=== PATIENT | female | born 1960 | race Caucasian/White ===

== ENCOUNTER 2018-05-09 05:25 | Inpatient (IN) ==
[2018-05-09] MEDS ORDERED: ceFAZolin Inj 2gm (Premix) 2 GM/50 ML BAG IV ONE ×2 (05:42→06:00)
[2018-05-09] MEDS ORDERED: Vancomycin Inj 1gm vial ONE ×3 (05:42→16:59)
[2018-05-09] MEDS ORDERED: Lactated Ringers 1,000 ML PRIMARY IV ONE ×4 (05:43→15:32)
[2018-05-09] MEDS ORDERED: LIDOCAINE W/ SODIUM BICARB 0.5 ML SYR ONE (05:43)
[2018-05-09] MEDS ORDERED: Sodium Chloride 0.9% 250 ML ONE (05:43)
[2018-05-09] MEDS ORDERED: Nasal Sanitizer POPSWAB ampule 3 AMP (Nozin) PREOP DOSE ENOS SCH (06:00)
[2018-05-09] MEDS ORDERED: LIDOCAINE W/ SODIUM BICARB 0.5 ML SYR SUBD ONE (06:00)
[2018-05-09] MEDS ORDERED: Propofol 2,000 MG/200 ML VIAL IV ONE (06:58)
[2018-05-09] MEDS ORDERED: REMIFENTANIL 1 MG/1 ML IV ONE ×2 (07:00→14:50)
[2018-05-09] MEDS ORDERED: REMIFENTANIL HCL 2 MG VIAL IV ONE ×2 (07:00→14:51)
[2018-05-09] MEDS ORDERED: VECURONIUM BROMIDE 10 MG VIAL ONE (07:06)
[2018-05-09] MEDS ORDERED: fentaNYL Inj 250 MCG/5 ML VIAL ONE (07:07)
[2018-05-09] MEDS ORDERED: IPRATROPIUM/ALBUTEROL SULFATE 3 ML NEB NEB PRN (07:10)
[2018-05-09] MEDS ORDERED: MIDAZOLAM 5 MG/1 ML ONE (07:10)
[2018-05-09] MEDS ORDERED: KETAMINE 100 MG/1 ML - 5 ML ONE (07:10)
[2018-05-09] MEDS ORDERED: fentaNYL Inj 100 MCG/2 ML VIAL IVP PRN ×2 (07:11→20:03)
[2018-05-09] MEDS ORDERED: ATROPINE SULFATE 0.4 MG/1 ML VIAL IVP PRN (07:11)
[2018-05-09] MEDS ORDERED: Prochlorperazine Edisylate Inj 10mg/2ml vial IVP PRN ×2 (07:11→21:12)
[2018-05-09] MEDS ORDERED: Ondansetron ODT Tab 8 MG TAB PO PRN (07:11)
[2018-05-09] MEDS ORDERED: ONDANSETRON 4 MG/2 ML VIAL IVP PRN ×2 (07:11→21:12)
[2018-05-09] MEDS ORDERED: LIDOCAINE W/ SODIUM BICARB 0.5 ML SYR SUBD PRN ×2 (07:11→20:03)
[2018-05-09] MEDS ORDERED: Acetaminophen 1000mg Inj 1,000 MG/100 ML VIAL IV ONE (07:18)
[2018-05-09] MEDS ORDERED: Sodium Chloride 0.9% 500 ML ONE (07:25)
[2018-05-09] MEDS ORDERED: Sodium Chloride 0.9% vial 40 ML ONE (07:31)
[2018-05-09] MEDS ORDERED: BUPIVACAINE 0.25% W/ EPI - 10 ML VIAL ONE (07:32)
[2018-05-09] MEDS ORDERED: BACITRACIN 50,000 UNIT VIAL IRRIG ONE ×2 (07:32→17:00)
[2018-05-09] MEDS ORDERED: Gentamicin Inj 40 MG/ML VIAL ONE ×2 (07:32→16:59)
[2018-05-09] MEDS ORDERED: PHENYLEPHRINE 10,000 MCG/1 ML VIAL ONE (08:35)
[2018-05-09] MEDS ORDERED: ePHEDrine Inj 50 MG/ML AMP ONE ×3 (08:55→17:26)
[2018-05-09] MEDS ORDERED: Hetastarch 6% + NS 500 ML IV ONE ×2 (10:27→17:12)
[2018-05-09] MEDS ORDERED: DOPAMINE IV ONE (11:28)
[2018-05-09] MEDS ORDERED: Propofol 1,000 MG/100 ML VIAL IV ONE ×2 (12:57→15:22)
[2018-05-09] MEDS ORDERED: Sodium Chloride 0.9% vial 20 ML ONE (16:59)
[2018-05-09] MEDS ORDERED: Sodium Chloride 0.9% vial 10 ML ONE ×2 (17:06→17:15)
[2018-05-09] MEDS ORDERED: PROPOFOL 10 MG/1 ML (200 MG/20 ML) VIAL IV ONE (18:03)
[2018-05-09] MEDS ORDERED: HYDROmorphone 2 MG/1 ML ONE (18:30)
[2018-05-09] MEDS ORDERED: BUPivacaine Inj 0.5% PF (5mg/ml) 10ml vial ONE (18:32)
[2018-05-09] MEDS ORDERED: BUPivacaine Liposome/PF (Exparel) Inj 20ml vial INFIL ONE (18:32)
[2018-05-09] MEDS ORDERED: HYDROmorphone 2 MG/1 ML IVP PRN (20:03)
[2018-05-09] MEDS ORDERED: PROMETHAZINE 25 MG/1 ML VIAL IM PRN ×2 (20:03→21:12)
--- NOTE | 2018-05-09 20:05 | CRNA.PROGR ---
Anesthesia Time - Procedure/Recovery Time Start Date: 05/09/18 End Date: 05/09/18 Anesthesia : Time In: 07:56 Anesthesia : Time Out: 19:57 Anesthesia : Total Time: 721 - Total Anesthesia Time Total Anesthesia Time (minutes): 721 - Other Weight: 70.76 kg Height: 5 ft 5 in Body Mass Index (BMI): 25.9 Physical Status: P2 Anesthesia Type: General Anesthesia : ET (L3-s1 PLIF)
--- NOTE | 2018-05-09 20:06 | CRNA.PROGR ---
Anesthesia Recovery Phase I - Post Anesthesia Evaluation Patient's Condition on Arrival in Phase I: Stable Pain Level: 2
[2018-05-09] MEDS: HYDROmorphone 2 MG/1 ML IVP PRN ×2 (20:17→20:30)
--- NOTE | 2018-05-09 20:27 | NEURO.PROG ---
Subjective Post Op Day: 0 Pain Management: IV Escalante Catheter: Yes Diet: Regular Ambulating: No Additional Details: Just waking up in PACU. Groggy, but answering questions and following commands. Complaint of chest pain, where supported by chest pad. Some redness, but blanches. Moving all extremities. PLAN: 1.) Transfer to floor when ready. 2.) Continue post-operative antibiotics. 3.) Continue post-operative pain control. 4.) Continue drains. 5.) Advance diet. 6.) Start to mobilize tomorrow. Objective : Data - Vital Signs Vital Signs and I&O: Vital Signs - Last Taken Temperature 97.6 F 05/09/18 06:30 Pulse Rate 69 05/09/18 07:20 Respiratory Rate 18 05/09/18 07:20 Blood Pressure 120/71 05/09/18 06:30 Pulse Ox 100 05/09/18 07:20 Intake and Output (24hr x 4 totals) 05/07/18 05/08/18 05/09/18 05/10/18 05:59 05:59 05:59 05:59 Intake Total 5800 / 5800 Output Total 2900 / 2900 Balance 2900 / 2900
[2018-05-09] MEDS ORDERED: MAGNESIUM CITRATE 296 ML SOLUTION PO PRN (21:12)
[2018-05-09] MEDS ORDERED: Metoclopramide Inj 10 MG/2 ML VIAL IVP PRN (21:12)
[2018-05-09] MEDS ORDERED: DIAZEPAM 10 MG TABLET PO PRN (21:12)
[2018-05-09] MEDS ORDERED: BISACODYL 5 MG TABLET PO PRN (21:12)
[2018-05-09] MEDS ORDERED: Fleet Enema 133ml RECTAL PRN (21:12)
[2018-05-09] MEDS ORDERED: Ondansetron ODT Tab 4 MG TAB PO PRN (21:12)
[2018-05-09] MEDS ORDERED: oxyCODONE/APAP 7.5/325 Tab 1 TAB TAB PO PRN (21:12)
[2018-05-09] MEDS ORDERED: Vancomycin-PHA to Dose IV SCH (21:12)
[2018-05-09] MEDS ORDERED: oxyCODONE-ACETAMINOPHEN 5-325 TAB PO PRN (21:12)
[2018-05-09] MEDS ORDERED: MAGNESIUM 400 MG/5 ML - 30 ML (MILK OF MAGNESIA) PO PRN (21:12)
[2018-05-09] MEDS: Sertraline Tab 50 MG TAB PO SCH (21:44)
[2018-05-09] MEDS: ALPRAZolam Tab 1 MG TABLET PO SCH (21:45)
[2018-05-09] MEDS: CALCIUM LACTATE PO SCH (22:56)
[2018-05-09] MEDS: Lactated Ringers 1,000 ML PRIMARY IV SCH (23:02)
[2018-05-10] MEDS: ceFAZolin Inj 1 GM in Sodium Chloride 0.9% 100 ML IV SCH ×2 (00:05→06:12)
[2018-05-10] MEDS: MORPHINE SULFATE 2 MG/1 ML IVP PRN ×2 (00:05→04:16)
[2018-05-10] MEDS: oxyCODONE/APAP 10/325 Tab 1 EACH TAB PO PRN ×7 (01:35→20:52)
[2018-05-10 05:04] LABS: BASOPHILS # (AUTO) 0.01 10*3/UL; BASOPHILS % (AUTO) 0.1 % (0-1); EOSINOPHILS # (AUTO) 0.03 10*3/UL; EOSINOPHILS % (AUTO) 0.4 % (0-8); Hematocrit [HCT] 25.5 % (37.0-47.0); LYMPHOCYTES # (AUTO) 0.65 10*3/uL; MEAN CORPUSCULAR HEMOGLOBIN 31.1 PG (27-31); MEAN CORPUSCULAR HGB CONC 31.4 g/dL (33-37); MEAN CORPUSCULAR VOLUME 99.2 FL (81-99); MEAN PLATELET VOLUME 8.6 FL (7.4-12.2); MONOCYTES # (AUTO) 0.43 10*3/UL (0.3-0.8); MONOCYTES % (AUTO) 5.9 % (5-15); NEUTROPHILS # (AUTO) 6.13 10*3/UL; NEUTROPHILS % (AUTO) 84.4 % (50-80); RED BLOOD COUNT 2.57 10^6/uL (4.20-5.40)
[2018-05-10 05:28] LABS: PLATELET MORPHOLOGY COMMENT NORMAL MORPHOLOGY (NORM); RBC MORPHOLOGY COMMENT SEE COMMENTS (NORM); WBC MORPHOLOGY COMMENT NORMAL MORPHOLOGY (NORM)
[2018-05-10 05:29] LABS: BLOOD UREA NITROGEN 9 mg/dL (7-22)
--- NOTE | 2018-05-10 05:34 | NEURO.PROG ---
Subjective Post Op Day: 1 Pain Management: IV Mcgill Catheter: Yes Flatus: Yes Diet: Regular Ambulating: No Additional Details: Ms Hernandez is awake and alert and moves all extremities. She has good strength bilaterally without numbness or paresthesias. Her pain is localized to the surgical area. She has not been out of bed but is ready to do so after pain meds this morning. Her chest is still sore from the pressure of the chest support during surgery, but has improved. Drainage from both drains is sero-sanguineous totalling approx 800 since surgery. She has a mcgill catheter which will be dc'd after she's been up. She was fitted for a back brace preoperatively and physical therapy will be here to assist with it and with ambulation. Dr Jones rounded this morning and discussed the plan going forward. He spoke with Ms Hernandez regarding the potential need for blood transfusion if she becomes symptomatic or if the hospitalist feels she needs one. Plan today is for pain management and progressive mobilization with physical therapy. Objective : Data - Labs CBC and BMP: 05/10/18 04:04 05/10/18 04:04 - Vital Signs Vital Signs and I&O: Vital Signs - Last Taken Temperature 98.4 F 05/10/18 04:04 Pulse Rate 97 05/10/18 04:04 Respiratory Rate 20 05/10/18 04:04 Blood Pressure 95/65 05/10/18 04:04 Pulse Ox 99 05/10/18 04:52 Intake and Output (24hr x 4 totals) 05/07/18 05/08/18 05/09/18 05/10/18 05:59 05:59 05:59 05:59 Intake Total 7075 / 7075 Output Total 4382 / 4382 Balance 2693 / 2693
[2018-05-10] MEDS: Lactated Ringers 1,000 ML PRIMARY IV SCH ×2 (06:15→14:29)
[2018-05-10] MEDS: HYDROmorphone 2 MG/1 ML IVP PRN ×6 (06:43→23:33)
[2018-05-10] MEDS: PANTOPRAZOLE 40 MG TABLET PO SCH (07:22)
[2018-05-10] MEDS: ALPRAZolam Tab 1 MG TABLET PO SCH ×2 (08:52→20:53)
[2018-05-10] MEDS: ASCORBIC ACID Chewable 500 MG TABLET PO SCH (08:52)
[2018-05-10] MEDS: CHOLECALCIFEROL 1000 IU TABLET PO SCH (08:56)
[2018-05-10] MEDS: CALCIUM LACTATE PO SCH (09:11)
--- NOTE | 2018-05-10 09:13 | PT.PROG ---
Progress Note Progress Note: Inpatient Initial Evaluation Name: Terese Hernandez Date: 05/10/18 Referring Diagnosis: lumbar fusion Date of Surgery/Admission: 05/09/18 Diagnosis: see above Thank you for your referral of PT. She was seen on 05/10/18 for the above diagnosis. Subjective: Patient is a 57 year old female s/p lumbar fusion. She states her level of pain is a 6/10, though it was a 15/10 prior to her pain medication. She states she is going to live with her brother and his following discharge so she is not alone. Her brother's residence has 2 steps leading into the house, but other than that there are no stairs she will need to utilize. Patient is receiving medications for pain at this time. Past Medical History: Past medical history can be found in the patient's chart. Objective: The patient transferred from sidelying to a seated position with minimal assistance and minimal pain. She was able to walk from her bed to her chair with MIAx2. She demonstrated full UE ROM, but resistance was not given at this time due to recent surgery. Assessment: Problem List: 1. Weakness 2. Pain 3. Difficulty walking 4. Difficulty transferring Short term goals: 1. Patient will be able to ambulate 150 ft independently in order to walk at home safely prior to discharge from inpatient care. 2. Patient will be able to transfer independently in order to get out of bed safely and independently at home prior to discharge. [facility] goals: 1. Patient will be seen by outpatient physical therapy. Treatment Plan: Patient will be seen twice a day during the week and once over the weekend as an inpatient until discharge. Initial Treatment: See objective Respectfully submitted, Mary Charlton, SPT [facility], [facility]
[2018-05-10] MEDS: CARISOPRODOL 350 MG TABLET PO PRN (13:27)
[2018-05-10] MEDS: NICOTINE 21 MG /DAY PATCH TRANSDERM SCH (14:47)
--- NOTE | 2018-05-10 15:13 | PT.PROG ---
Progress Note Progress Note: S. Patient stated that she is feeling a little better this afternoon, compared to this morning. O. Patient transferred from side lying to seated then ambulated 15 feet to the rosario and 10 feet back to the chair where she was left with alarm and call light. A. Patient tolerated ambulation well this afternoon. She would continue to benefit from skilled therapy to meet established goals at this time. P. Continue POC.
--- NOTE | 2018-05-10 17:06 | CRNA.PROGR ---
Anesthesia Note - Progress Notes Anesthesia Progress Note: Lying in bed, asking for pain medicine. Says she has ambulated a couple times. Has been up to bathroom. States she ate breakfast. Chest is sore where she has a pressure sore r/t long time in prone position. Laboratory Results 05/10/18 05/10/18 Range/Units 04:04 04:04 WBC 7.27 (4.8-10.8) 10^3/uL RBC 2.57 L (4.20-5.40) 10^6/uL Hgb 8.0 L (12.0-16.0) g/dL Hct 25.5 L (37.0-47.0) % MCV 99.2 H (81-99) FL MCH 31.1 H (27-31) PG MCHC 31.4 L (33-37) g/dL RDW Std Deviation 46.8 (39-50) fL RDW Coeff of Kevin 13.3 (11.5-14.5) % Plt Count 207 (140-350) 10*3/uL MPV 8.6 (7.4-12.2) FL Immature Gran % (Auto) 0.3 (0-5) % Neut % (Auto) 84.4 H (50-80) % Lymph % (Auto) 8.9 L (10-50) % [place] % (Auto) 5.9 (5-15) % Eos % (Auto) 0.4 (0-8) % Baso % (Auto) 0.1 (0-1) % Immature Gran # (Auto) 0.02 10*3/UL Neut # (Auto) 6.13 10*3/UL Lymph # (Auto) 0.65 10*3/uL [place] # (Auto) 0.43 (0.3-0.8) 10*3/UL Eos # (Auto) 0.03 10*3/UL Baso # (Auto) 0.01 10*3/UL WBC Morphology Comment Normal morphology (NORM) Plt Morphology Comment Normal morphology (NORM) RBC Morph Comment See comments (NORM) Sodium 141 (135-145) meq/L Potassium 4.0 (3.8-5.2) meq/L Chloride 111 (98-112) meq/L Carbon Dioxide 28 (23-33) meq/L Anion Gap 2 L (5-20) BUN 9 (7-22) mg/dL Creatinine 0.5 (0.50-1.20) mg/dL Estimated GFR > 60 (>60 ml/min/1.73m(2)) BUN/Creatinine Ratio 18.00 (6-20) Glucose 111 H (78-110) mg/dL Calculated Osmolality 291.0 (267-292) mOsm/kg Calcium 7.7 L (8.7-10.7) mg/dL
--- NOTE | 2018-05-10 17:49 | GEN.OPNOTE ---
Operative Note Surgery Date: 05/09/18 Preoperative Diagnosis: 1.) Chronic severe low back pain. 2.) Multilevel advanced lumbar degenerative disc disease. 3.) Multilevel advanced lumbar spondylosis. 4.) Severe left L4 neuroforaminal stenosis. 5.) Severe left L5 neuroforaminal stenosis. Postoperative Diagnosis: Same. Procedure: 1.) Left L4-5 hemilaminotomy, medial facetectomy, foraminotomy for decompression of lateral recess and severe neuroforaminal stenosis. (CPT code: 36277). 2.) Left L5-S1 hemilaminotomy, medial facetectomy, foraminotomy for decompression of lateral recess and severe neuroforaminal stenosis. (CPT code: 58102). 3.)L5-S1 interbody and posterolateral arthrodesis in preparation for fusion of the anterior and posterior aspects of the spinal column at the L5-S1 level. (CPT code: 86728). 4.) Insertion of a 9mm x 11mm x 26 mm Tritanium PL machined cage (filled in the center with autograft into the L5-S1 interspace. ( CPT code: 93364). 5.) Posterolateral arthrodesis, T10, bilaterally in preparation for posterolateral fusion. (CPT code: 47804). 6.) Posterolateral arthrodesis, T11, bilaterally in preparation for posterolateral fusion. (CPT code: 17002). 7.) Posterolateral arthrodesis, T12 bilaterally in preparation for posterolateral fusion. (CPT code: 92261). 8.) Posterolateral arthrodesis, L1 bilaterally in preparation for posterolateral fusion. (CPT code: 69021). 9. ) Posterolateral arthrodesis, L2 bilaterally in preparation for posterolateral fusion. (CPT code: 91167). 10.) Posterolateral arthrodesis, L3 bilaterally in preparation for posterolateral fusion. (CPT code: 57037). 11.) Posterolateral arthrodesis, L4 bilaterally in preparation for posterolateral fusion. (CPT code : 66353). 12.) Posterolateral arthrodesis, S1 bilaterally in preparation for posterolateral fusion. (CPT code: 72780). 13.) Posterolateral segmental instrumentation T10-S1 (sacrum) using [employer] 3 lumbar instrumentation system. (CPT code: 02068). 14.) Posterolateral pelvic fixation of lower end of instrumentation construct using iliac bolts ([place] Regis 3 system). (CPT code : 48786). 15.) Use of morselized autograft for interbody and posterolateral fusion. (CPT code: 84033). 16.) Use of two medium Telkonettronic INFUSE bone morphogenic protein strips, 30 cc of [employer] BIO DBM PUTTY PLUS with cancellous chips, 5 cc of [employer] i-FACTOR synthetic bone product, and 120 cc of cancellous bone chips (morsellized allograft) for fusion material (some interbody and all posterolateral). (CPT code: 55418). 17.) Use of computer assisted, three dimensional neuronavigation for the cannulization of the T10-S1 pedicles and the ilium bilaterally using the [employer] Neuronavigation system for the subsequent placement of the T10-S1 pedicle screws and iliac bolts bilaterally. 18.) Use of intra-operative neuronavigation for the localization of the correct surgical levels and for the final confirmation of the position of the L5 -S1 interbody cage. 19.) Use of intra-operative neuromonitoring including free running EMG's, triggered EMG's, SSEP's, and MEP's. Surgeon: Mehdi Jones MD Volunteer Manager: ABBIE Rojas Anesthesia Provider: Jordyn Dale CRNA Anesthesia Type: General Estimated Blood Loss (mL): 1,000 Fluids: See anesthesia record Pathology: None Indications: Ms. Hernandez is a 57 y.o. female with chronic severe low back pain that she consistently rates as 10/10 and effects the things that she is able to do and affects her quality of life. She had imaging studies demonstrating multilevel advanced lumbar degenerative disc disease and multilevel lumbar spondylosis. Her symptoms failed to improve with expectant management, medical management, and all other non-operative treatments. She wished to proceed with surgical treatment in the hope of some degree of durable lessening of her severe chronic low back pain. Findings: 1.) Left L4-5 and L5-S1 lateral recess stenosis. 2.) Severe left L4 and L5 neuroforaminal stenosis. 3.) Multilevel advanced facet arthropathy/hypertrophy. Complications: None Operative Summary: Miss Hernandez was met in the preoperative area. Her surgical history and physical was updated. The procedure to be performed was confirmed with her and her and we were in agreement on the procedure and this matched what was written on the patient's consent form. Any questions that she or her had were answered before she was taken back to the operating room suite. Miss Hernandez was brought back to the operating room suite and put under general anesthesia and intubated by the anesthesia staff. She had a Escalante catheter placed or bladder for the procedure. She had pneumatic compression hose placed on her lower legs. Miss Hernandez was carefully rolled over onto the [place] surgical table with her arms gently positioned upwards with her shoulders abducted less than 90. Her arms were well-padded with foam padding on top of the padding of the surgical armboards. The region of her chest and axilla was checked bilaterally to make sure that there were no pressure points over the region of the brachial plexus bilaterally. Her breasts were checked be below the chest pain of the Josesito table with no pressure points over the nipples. All bony prominences were well padded. Her Escalante catheter was checked to be free from kinks. Her pneumatic compression hose was attached pneumatic compression device. The C-arm fluoroscopy unit was used to help localize the skin incision for the approach to the intended surgical levels. The skin was marked with a skin marker was several crosshatches. Miss Hernandez was prepped and draped in the usual and standard fashion. She was given 2 g of Ancef IV and 1 g of vancomycin IV for perioperative antibiosis. The intended skin incision was injected subcutanously with quarter percent Marcaine with 1 in 200,000 epinephrine. The skin was incised with a 10 blade scalpel and all dermal and superficial bleeding points were controlled with bipolar cautery dissection was continued through the subcutaneous tissue down to the thoracolumbar, lumbar, and lumbosacral fascia. Any bleeding in the subcutaneous tissue was controlled with the Aqua Mantis. The subcutaneous tissue was dissected laterally from the fascia to help identify the fascial layer for the closure portion of the procedure. The fascia was incised along the borders of the spinous processes with Bovie cautery and subperiosteal dissection was performed down the spinous processes and out over the lamina. When most of the lumbar lamina was identified to believed to be the sacrum and several of the lower thoracic lamina were dissected out [place] 4 instrument was placed underneath what was believed to be the L5 lamina and a Patrick instrument manidner was placed over the lower thoracic spinous process adjacent to what was believed to be the level of the T10 pedicles. AP and lateral fluoroscopic images identified the levels continued subperiosteal dissection was performed until the exposure was from the T 10 lamina to the sacrum bilaterally. The dissection was then taken taken out laterally over the facet joints and transverse processes of each of these levels bilaterally. Medial aspect of the ilium and the crest was dissected out bilaterally closure needed for the placement of the iliac bolts. Soft tissue was removed over the posterior aspect of the spine using Bovie cautery and a large Leksell rongeur. Extensive decortication of the facet joints and transverse processes was then performed from T10-S1 using the [employer] high-speed drill with a matchstick bit and the upper part of the sacrum and sacral alar and the medial aspect of the ilium was decorticated in the same fashion with the same drill in the same bit. The bone dust created was collected and saved to be used as autograft during the fusion portion of the procedure. The [employer] neuro navigation reference arc was then securely attached to the T10 spinous process. Four spins were then performed with the [facility] 3-D fluoroscopy unit. The [employer] neuro navigation pedicle probe was then used to cannulate the T10, T11, T12, L1, L2, L3, L4, L5, S1 pedicles as well as the ilium bilaterally. Internal aspect of all cannulated channels were palpated with a small ball-tip instrument to make sure that there were no cortical breaches of the pedicles or the ilium. The pedicles and ilium were all then tapped with the appropriate size [place] Regis 3 tap. The pedicles and the ilium were all then palpated again with a small ball-tip instrument to again assure that there were no cortical breaches. Pedicle screws and iliac bolts were then placed. Or 4.5 x 45 mm pedicle screws were placed into the T10 pedicles bilaterally. 5.5 x 50 mm pedicle screws were placed into the T11 and T12 pedicles bilaterally. 4.5 x 45 mm pedicle screws were placed into the L1 pedicles bilaterally. 5.5 x 55 mm pedicle screws were placed into the L2, L3, L4, L5 pedicles bilaterally. 6.5 x 50 mm pedicle screws were placed into the S1 pedicles bilaterally. 7.5 x 80 mm iliac bolts were placed into the ilium bilaterally. All screws obtained good purchase in the pedicle and vertebral body bone in the ilium bilaterally. The thoracic and lumbar pedicle screws as well as the iliac bolts were then all interrogated with triggered EMGs. All demonstrated to be over 40 mA in impedance with the exception of one of the pedicle screws that had a reading of 39 mA. This indicated all pedicle screws in the iliac bolts were not in near proximity to nerve structures. Four additional spins with the [facility] 3-D fluoroscopy unit provided further confirmation that the pedicle screws were all confined within the cortical jimenez of the pedicles and the ilium bilaterally. Attention was turned to the decompression on the left at the L4-5 and L5-S1 levels to decompress the respective nerve foramen at these levels. Lino- laminotomies medial facetectomies and foraminotomies were performed at L4-5 and L5-S1 on the left using the [employer] high-speed drill with a matchstick bit. Surgical findings included not only severe left L4 and left L5 neuroforaminal stenosis but also moderately severe to severe left L4-5 and L5-S1 lateral recess stenosis secondary to bony arthropathy and ligamentous hypertrophy. This was all decompressed with the high-speed drill with a matchstick bit was with Kerrison punches. The medial facetectomy at L5-S1 on the left was extended laterally using the high-speed drill with a matchstick bit to provide the proper exposure needed for the discectomy and interbody fusion portion of the procedure. [place] 4 instrument was used to carefully dissect the soft tissue adjacent to the takeoff of the S1 nerve root identifying the L5-S1 disc space. The Luis Manuel'Errico nerve root retractor was then used to gently retract the takeoff the S1 nerve root and the thecal sac. Epidural veins over the disc space were coagulated with bipolar cautery turned down to a low setting and cut with microscissors. An annulotomy was performed with a 15 blade scalpel and disc material was removed with a pituitary rongeur. Additional disc and cartilaginous endplate was removed using the K2 disc space terrence with a 7 mm disc space shaver followed by an 8 mm disc space shaver. Additional disc was removed from the disc space using pituitary rongeur. A large down-biting Tati curette was then used to loosen disc in the lateral aspects of the disc space bilaterally with the fragments being removed from the interspace with a pituitary rongeur. The large down-biting Tati curette was then used to decorticate the L5 and S1 endplates in preparation for fusion of the L5-S1 interspace. The interspace was irrigated with bacitracin irrigation. Approximately 2-1/2-3 mL of a mixture of [employer] i-FACTOR synthetic bone product (allograft) with [place] BIO DBM plus putty with cancellous chips ( allograft) was then placed into the interspace and moved anteriorly with a bone tamp. The appropriate size lumbar interbody cage was selected, a 9 mm x 11 mm x [address] titanium lumbar interbody cage was selected and filled in the center with morcellized autograft and inserted into the L5-S1 interspace using the store loss prevention manager. The cage was gently countersunk and rotated with a bone tamp and mallet. The cage obtained good purchase between the L5 and S1 endplates. The final position of the cage was confirmed with lateral fluoroscopy. At this point it was considered to perform an interbody fusion on the right at the L2-3 level and possible bilateral posterior osteotomies, to try to correct the mild degenerative scoliosis however it was felt at this point that with the remaining aspects of the surgery still to be performed that the surgical procedure would be over 10 hours possibly up to 12 hours and it was felt that the slight benefit of correcting the mild coronal deformity at this level by the extra operative time needed to perform the correction, and the correction was felt to be unlikely to be of significant benefit to the improvement of the patient's symptoms compared to what already had been done, it was decided not to proceed the L2-3 interbody fusion and bilateral posterior osteotomies. Attention was then turned to eating the instrumentation portion of the procedure. Templates were used to measure the length of the rods needed to span from the T10 pedicle screw tulips to the S1 pedicle screw tulips. The appropriate length 6 mm diameter titanium rods were then cut from the template measurements. The rods were then bent into the appropriate lumbar lordosis and thoracic kyphosis to fit into the pedicle screws. The rods were then placed into the tulips of the pedicle screws from T10-S1 bilaterally. Set screws are then placed over the rods in the tulips of the pedicle screws from T10-S1 and tightened down hand tight. The set screws were then tightened down to the final tightened using the torque counter torque device. Two additional rods are then cut to the appropriate length and bent into the appropriate lumbar lordosis. These rods were then affixed into the tulips of the iliac bolts bilaterally and affixed to the T10 and S1 rods using yao to yao connectors connecting to these rods between the L1 and L2 pedicles screws bilaterally. All of the set screws were then tightened down to their appropriate tightness using torque counter torque device. The surgical site was then irrigated with a bottle of hydrogen peroxide solution which was allowed to sit briefly before it was removed with suction. The surgical site was then pulse lavaged with 6 L of bacitracin/vancomycin/ gentamicin solution. Speeds drill with a matchstick bit was then used to decorticate the lamina as an spinous processes of T10, T11, T12, L1, L2, L3, L4 on the right, L5 on the right, and the sacrum bilaterally and the medial aspects of the ilium bilaterally. Bone dust created was left in situ. The 8 strips between the two medium INFUSE packs were then cut in length creating 16 strips. The strips were then placed medial to the hardware elements over the laminas from T10 to the sacrum bilaterally with the strips at L4-5 and L5-S1 on the left being placed lateral to the hemilaminotomy foraminotomy sites. Two strips were placed lateral to the hardware construct across the L5-S1 transverse processes and sacral alar bilaterally. FloSeal hemostatic agent was then placed over the exposed dura of the hemilaminotomy and medial facetectomy sites on the left at L4-5 and L5-S1. Pieces of foam were then placed over the hemilaminotomy/medial facetectomy sites at L4-5 and L5-S1 on the left. 60 mL of cancellus chips (allograft) was then placed medial and lateral to the hardware construct from the T10 level to the sacrum/ilium bilaterally. Meaning portion of the knee cc of [employer] BIO DBM plus putty with cancellous chips ( allograft) mixed with the remaining aspect of the [employer] i-FACTOR synthetic bone product (allograft) was then placed medial to the hardware construct from T10-S1/ilium bilaterally over the cancellus bone chips. Two medium Hemovac drains were then placed in the surgical site. Final AP and lateral fluoroscopic images of the hardware construct were obtained. Closure portion of the procedure was begun. The fascial layer was closed tightly with #1 Vicryl suture in an interrupted fashion. The surgical site was irrigated with bacitracin irrigation. The deep subcutaneous tissue and fascia was closed with 2-0 Vicryl suture in a interrupted fashion. The dermis and superficial subcutaneous tissue was reapproximated with 3-0 Vicryl suture in an inverted interrupted fashion. The Ioban drape was pulled back from the skin edges. The final layer of closure was performed surgical stainless steel pebbles. The incision was cleansed with bacitracin soaked sponge and dried with sterile dry sponge. The incision was dressed with a Mepilex dressing. The surgical drains were secured with suture. The drain sites were then dressed. Surgical drapes were removed from Ms. Hernandez. She was carefully rolled over onto the PACU stretcher. She was awoken and extubated by the anesthesia staff. She was taken to the recovery room in stable condition. All surgical counts were reported as correct by the scrub and circulating personnel. A special event assistant, Mrs. Sallie Goodman PA-C assisted with the procedure being present throughout the entire procedure. She assisted with the exposure and closure portions of the procedure. She skillfully and carefully retracted the nerve structures during the more critical portions of the procedure such as the discectomy and intervertebral cage placement. She provided irrigation and suctioning graft procedure.
--- NOTE | 2018-05-10 18:23 | CONSULT ---
Consult Note - Consult Consult Date: 05/10/18 Reason for Consult: PostOp Consulation : Neuro Requesting Physician: Dr. Jones Primary Care Provider: NONE NONE HPI - History of Present Illness Date of Service: 05/10/18 Time of Service: 10:00 Chief Complaint: Back pain History of Present Illness: This is a very pleasant 57-year-old female with no significant overall chronic medical issues who presented for surgery with Dr. 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 Please see his surgical note regarding procedure performed. We were asked to see the patient regarding her medication regimen, including Soma, multivitamins, and vitamin D as well as Zoloft. The patient tells me postoperatively and that she has no complaints chest pain, shortness of breath, nausea or vomiting, and states that she's had intermittent problems with back pain but it is been very different from the pain she had prior to surgery. She denies any fever. She has been able to get up with physical therapy. She has suffered with pain in the back for some time. She states that she just recently went on pain medications and soma under the direction of her primary physician in [place]. She does admit to tobacco abuse but is willing to try to quit. There were no other exacerbating factors. Past Medical History Medical History: 1. Chronic back pain. 2. Tobacco abuse Surgical History: 1. prior tubal surgery. 2. cervical surgery. 3. prior history of colonoscopy with reported history of polyps. Pertinent Family History: significant for stroke in father Past Social History: smokes, no alcohol, for 21 years, lives in [place], one healthy son Tobacco Use: Current Every Day Smoker Do you dip or chew tobacco: No In the Past 12 Months, Have Used or Abuse Any of the Following Substance: None Alcohol Use: None Review of Systems - Constitutional Constitutional: REPORTS: Negative System Review - Respiratory Respiratory: REPORTS: Negative System Review - Cardiovascular Cardiovascular: REPORTS: Negative System Review - Gastrointestinal Gastrointestinal / Abdominal: REPORTS: Negative System Review - Musculoskeletal Musculoskeletal: REPORTS: See HPI - Additonal Details Additional ROS Details: denies dizziness, denies fatigue, denies lightheadedness Medication / Allergies Home Medications: Home Medications 3 Medication Instructions Recorded Confirmed Type alprazolam 1 mg tablet 1 mg PO BID 03/20/18 05/09/18 History ascorbic acid (vitamin C) 500 mg 500 mg PO DAILY 03/20/18 05/09/18 History capsule calcium lactate 100 mg calcium 250 mg PO BID tab 03/20/18 05/09/18 History tablet carisoprodol 350 mg tablet 350 mg PO TID tab 03/20/18 05/09/18 History cholecalciferol (vitamin D3) 5,000 5,000 unit PO QDAY 03/20/18 05/09/18 History unit capsule diphenhydramine 25 1 tab PO QHS PRN 03/20/18 05/09/18 History mg-acetaminophen 500 mg tablet ibuprofen 200 mg capsule 200 mg PO QID PRN 03/20/18 05/09/18 History lactobacillus combination no.9 4 4,000 mmu cells PO QDAY 03/20/18 03/20/18 History billion cell capsule sertraline 50 mg tablet 50 mg PO QDAY 03/20/18 05/09/18 History oxycodone 5 mg tablet,oral ONLY 5 mg PO Q6H PRN #10 ea 05/01/18 05/09/18 Rx (not feeding tubes) Allergies/Adverse Reactions: Allergies 3 Allergy/AdvReac Type Severity Reaction Status Date / Time prednisone Allergy Intermediate rash, Verified 05/10/18 06:55 hurts all over, bad mental effect Exam - Vitals Vital Signs: Vital Signs Vital Signs - Last Taken Temperature 98.8 F 05/10/18 16:38 Pulse Rate 110 H 05/10/18 16:38 Respiratory Rate 12 05/10/18 16:38 Blood Pressure 102/61 05/10/18 16:38 Pulse Ox 92 05/10/18 16:38 Oxygen Delivery Method Nasal Cannula Height 5 ft 5 in Weight 159 lb 6.4 oz - General General Appearance: No Acute Distress, Cooperative - Head Head Exam: Normal Inspection, Normocephalic, Atraumatic - Eye Eye Exam: POSITIVE: No Scleral Icterus - ENT ENT Exam: POSITIVE: Mucous Membranes Moist - Neck Neck Exam: Normal Inspection - Respiratory Respiratory Exam: POSITIVE: Clear to Auscultation - Bilaterally, Breathing Non Labored - Cardiovascular Cardiovascular Exam: POSITIVE: No Murmur, No Clicks, No Gallops, No Rubs, Tachycardia, No JVD - GI/Abdominal GI/Abdominal Exam: POSITIVE: Normal Bowel Sounds, Non Tender, Non Distended, Soft - Rectal Rectal Exam: POSITIVE: Deferred - External Exam: POSITIVE: Deferred Exam: POSITIVE: Deferred - Extremities Extremities Exam: POSITIVE: No Clubbing Present, No Edema Present, No Cyanosis Present - Back Additional Back Exam Details: drain in place - Neurological Neurological Exam: POSITIVE: Alert, Oriented x 3, No Facial Droop, Speech Intact / Clear, Moves All Extremities Equally - Psychiatric Psychiatric Exam: POSITIVE: Normal Affect, Normal Mood Results - Labs CBC and BMP: 05/10/18 04:04 05/10/18 04:04 Additional Lab Results: 05/10/18 04:04 MCV 99.2 H MCH 31.1 H MCHC 31.4 L Assessment and Plan - Patient Problems (1) Anemia Current Visit: Yes Status: Acute Code(s): D64.9 - Anemia, unspecified Qualifiers: Anemia type: unspecified type Qualified Code(s): D64.9 - Anemia, unspecified (2) History of back surgery Current Visit: Yes Status: Acute Code(s): Z98.890 - Other specified postprocedural states (3) Depression Current Visit: Yes Status: Acute Code(s): F32.9 - Major depressive disorder , single episode, unspecified Qualifiers: Depression Type: unspecified Qualified Code(s): F32.9 - Major depressive disorder, single episode, unspecified (4) Chronic neck and back pain Current Visit: Yes Status: Chronic Code(s): M54.2 - Cervicalgia; M54.9 - Dorsalgia, unspecified; G89.29 - Other chronic pain - Assessment / Plan Additional Assessment/Plan Details: in terms of soma, will resume at PRN frequency Q8 Hours in terms of anemia, no need to transfuse today. will check iron studies, Vitamin B12, folate. if iron deficient, would recommend iron infusion I spoke with the patient and her --I strongly encouraged repeat endoscopy (specifically, colonoscopy) before the end of the year, but really needs to recover from back surgery first. She told me that she had planned to get colonoscopy but back surgery came first. labs in AM PT and OT pain control as per neurosurgery stop IV fluids mcgill catheter out DVT prophylaxis as per neurosurgery. nicotine patch for smoking cessation.
[2018-05-10] MEDS ORDERED: Lactated Ringers 0 ML PRIMARY IV ONE (18:54)
[2018-05-10] MEDS ORDERED: Sodium Chloride 0.9% 0 ML PRIMARY IV ONE (18:57)
[2018-05-10] MEDS: diphenhydrAMINE 25 MG CAPSULE PO PRN (20:52)
[2018-05-10] MEDS: CALCIUM CARBONATE 500 MG (TUMS) CHEWABLE TABLET PO SCH (20:53)
[2018-05-10] MEDS: Sertraline Tab 50 MG TAB PO SCH (20:53)
[2018-05-11] MEDS: oxyCODONE/APAP 10/325 Tab 1 EACH TAB PO PRN ×5 (01:06→19:40)
[2018-05-11] MEDS: HYDROmorphone 2 MG/1 ML IVP PRN ×4 (04:51→20:37)
--- NOTE | 2018-05-11 06:27 | NEURO.PROG ---
Subjective Post Op Day: 2 Pain Management: IV Escalante Catheter: No Flatus: Yes Diet: Regular Ambulating: Yes Additional Details: Ms Hernandez was reported to have a good day yestarday and a good night. She states she feels much better, no nausea, has been up in room with physical therapy and standing at the bedside without assist. Assessment shows good lower extremity strength bilaterally, without numbness or paresthesias. She says her low back pain management is good with oxycodone and dilaudid. We visited about needing to have pain control with oral pain meds only for discharge. Awaiting labs: iron, iron binding and B12/folate and plan from Dr. Serna. Will also check an H&H Drainage total from drains: 300ml. Will plan to check those later today for possible dc this evening or in am. Plan to continue mobilization with physical therapy. Objective : Data - Labs CBC and BMP: 05/10/18 04:04 05/10/18 04:04 - Vital Signs Vital Signs and I&O: Vital Signs - Last Taken Temperature 98.2 F 05/11/18 04:52 Pulse Rate 93 05/11/18 04:52 Respiratory Rate 16 05/11/18 04:52 Blood Pressure 91/47 05/11/18 04:52 Pulse Ox 94 05/11/18 05:07 Intake and Output (24hr x 4 totals) 05/09/18 05/10/18 05/11/18 05/12/18 05:59 05:59 05:59 05:59 Intake Total 7075 / 7075 3182 / 3182 Output Total 4782 / 4782 1220 / 1220 Balance 2293 / 2293 1961 / 1961
[2018-05-11 06:50] LABS: Hemoglobin [HGB] 7.4 g/dL (12.0-16.0)
[2018-05-11] MEDS: PANTOPRAZOLE 40 MG TABLET PO SCH (07:02)
[2018-05-11] MEDS ORDERED: Sodium Chloride 0.9% 500 ML PRIMARY IV ONE (07:48)
[2018-05-11] MEDS ORDERED: FUROSEMIDE 10 MG/1 ML - 2 ML VIAL IVP ONE (07:48)
[2018-05-11] MEDS ORDERED: diphenhydrAMINE 25 MG CAPSULE PO ONE (07:48)
[2018-05-11] MEDS ORDERED: ACETAMINOPHEN 325 MG TABLET PO ONE (07:48)
[2018-05-11] MEDS: ASCORBIC ACID Chewable 500 MG TABLET PO SCH (09:42)
[2018-05-11] MEDS: CALCIUM CARBONATE 500 MG (TUMS) CHEWABLE TABLET PO SCH ×2 (09:42→20:38)
[2018-05-11] MEDS: ALPRAZolam Tab 1 MG TABLET PO SCH ×2 (09:42→20:38)
[2018-05-11] MEDS: CHOLECALCIFEROL 1000 IU TABLET PO SCH (09:42)
[2018-05-11] MEDS: NICOTINE 21 MG /DAY PATCH TRANSDERM SCH (14:51)
--- NOTE | 2018-05-11 15:58 | PDOC(PROG) ---
Date of Service: 05/11/18 Time of Service: 15:56 Interval History: Patient seen and evaluated earlier today. No chest pain. No nausea or vomiting. Back pain persistent but seemingly well controlled on pain medication regimen now. Blood counts were low and so we discussed blood transfusion given some hypotension and the patient agreed that this would likely help her feel better. Objective : Data - Labs CBC and BMP: 05/11/18 06:48 05/10/18 04:04 Additional Lab Results: 05/11/18 05/11/18 04:44 05:00 Iron 29 L TIBC 229 L % Saturation 0 L Vitamin B12 460 Serum Folate 20.0 Objective : Exam - General General Appearance: No Acute Distress, Cooperative Additional General Exam Details: Vital Signs - Last Taken Temperature 98.6 F 05/11/18 15:01 Pulse Rate 83 05/11/18 15:01 Respiratory Rate 14 05/11/18 15:01 Blood Pressure 103/64 05/11/18 15:01 Pulse Ox 94 05/11/18 15:01 - Eye Eye Exam: No Scleral Icterus - ENT ENT Exam: Mucous Membranes Moist - Respiratory Respiratory Exam: Clear to Auscultation - Bilaterally, Breathing Non Labored - Cardiovascular Cardiovascular Exam: RRR, No Murmur, No Clicks, No Gallops, No Rubs, No JVD - GI/Abdominal GI/Abdominal Exam: Normal Bowel Sounds, Non Tender, Non Distended, Soft - Extremities Extremities Exam: No Clubbing Present, No Edema Present - Neurological Neurological Exam: Alert, Oriented x 3, No Facial Droop, Speech Intact / Clear, Moves All Extremities Equally Assessment and Plan - Patient Problems (1) Anemia Current Visit: Yes Status: Acute Code(s): D64.9 - Anemia, unspecified Qualifiers: Anemia type: unspecified type Qualified Code(s): D64.9 - Anemia, unspecified (2) History of back surgery Current Visit: Yes Status: Acute Code(s): Z98.890 - Other specified postprocedural states (3) Depression Current Visit: Yes Status: Acute Code(s): F32.9 - Major depressive disorder , single episode, unspecified Qualifiers: Depression Type: unspecified Qualified Code(s): F32.9 - Major depressive disorder, single episode, unspecified (4) Chronic neck and back pain Current Visit: Yes Status: Chronic Code(s): M54.2 - Cervicalgia; M54.9 - Dorsalgia, unspecified; G89.29 - Other chronic pain - Assessment / Plan Additional Assessment/Plan Details: I would recommend transfusing 2 packs of red blood cells as we are critical care access hospital, have limited blood supply on, the patient is typed and crossed already, and has a long drive back to [place]. Given the iron deficiency component, I think the patient should have a colonoscopy done back home and I discussed that with her and her and they agreed that they will follow up on that and [place] with their primary doctor. She needs to heal from the back surgery first. Check CBC in a.m. The vitamin B12 is low normal. We'll discuss with patient and she may benefit from by mouth vitamin B12.
--- NOTE | 2018-05-11 16:45 | PT.PROG ---
Progress Note Progress Note: S. Patient stated that she is having a lot of pain this afternoon. O. Patient performed sit to stand transfer then ambulated 80 feet in the rosario then returned to her chair where she performed sit to stands x 2 then was left with alarm and call light. A. Patient tolerated ambulation and transfers fair, she continues to struggle with pain and would continue to benefit from skilled therapy to meet established goals at this time. P. Continue POC.
[2018-05-11] MEDS: diphenhydrAMINE 25 MG CAPSULE PO PRN (17:26)
[2018-05-11] MEDS: Sertraline Tab 50 MG TAB PO SCH (20:38)
[2018-05-11] MEDS: DOCUSATE 100 MG CAPSULE PO PRN (22:04)
[2018-05-12] MEDS: oxyCODONE/APAP 10/325 Tab 1 EACH TAB PO PRN ×6 (00:04→20:19)
[2018-05-12] MEDS: HYDROmorphone 2 MG/1 ML IVP PRN ×2 (00:05→03:01)
[2018-05-12 04:39] LABS: Hematocrit [HCT] 32.1 % (37.0-47.0); Hemoglobin [HGB] 10.5 g/dL (12.0-16.0); MEAN CORPUSCULAR HGB CONC 32.7 g/dL (33-37); MEAN CORPUSCULAR VOLUME 94.7 FL (81-99); MEAN PLATELET VOLUME 8.9 FL (7.4-12.2); RED BLOOD COUNT 3.39 10^6/uL (4.20-5.40)
[2018-05-12] MEDS: PANTOPRAZOLE 40 MG TABLET PO SCH (07:16)
[2018-05-12] MEDS: CHOLECALCIFEROL 1000 IU TABLET PO SCH (08:41)
[2018-05-12] MEDS: CALCIUM CARBONATE 500 MG (TUMS) CHEWABLE TABLET PO SCH ×2 (08:41→20:20)
[2018-05-12] MEDS: CYANOCOBALAMIN (VITAMIN B-12) 1,000 MCG TABLET.ER PO SCH (08:42)
[2018-05-12] MEDS: ASCORBIC ACID Chewable 500 MG TABLET PO SCH (08:42)
[2018-05-12] MEDS: CARISOPRODOL 350 MG TABLET PO PRN (08:42)
[2018-05-12] MEDS: ALPRAZolam Tab 1 MG TABLET PO SCH ×2 (08:42→20:20)
--- NOTE | 2018-05-12 09:00 | NEURO.PROG ---
Subjective Post Op Day: 3 Pain Management: PO Escalante Catheter: No Flatus: Yes Diet: Regular Ambulating: Yes Additional Details: Ms Hernandez is afebrile, VSS. H&H much improved after 2 units prbc. She is ambulating with physical therapy and up in the room. She does still complain about satisfactory pain relief, but wants to progress to discharge tomorrow. Will try adding her Soma back to see if some muscle relaxation will help. Drainage from drains 120ml from both drains in 12 hours so will dc them this morning. Incision is dry and intact without erythema. Bilateral leg strength is good and she denies numbness or parasthesias. Plan to continue mobilization and pain management with the goal of discharge tomorrow per hospitalist. Objective : Data - Labs CBC and BMP: 05/12/18 04:15 05/10/18 04:04 - Vital Signs Vital Signs and I&O: Vital Signs - Last Taken Temperature 97.1 F 05/12/18 07:15 Pulse Rate 82 05/12/18 07:15 Respiratory Rate 16 05/12/18 07:15 Blood Pressure 96/54 05/12/18 07:15 Pulse Ox 99 05/12/18 07:15 Intake and Output (24hr x 4 totals) 05/10/18 05/11/18 05/12/18 05/13/18 05:59 05:59 05:59 05:59 Intake Total 7075 / 7075 3182 / 3182 3334 / 3334 120 / 120 Output Total 4782 / 4782 1220 / 1220 1805 / 1805 Balance 2293 / 2293 1962 / 1962 1529 / 1529 120 / 120
--- NOTE | 2018-05-12 10:41 | PDOC(PROG) ---
Date of Service: 05/12/18 Time of Service: 10:38 Interval History: No chest pain and no shortness of breath. She's had a persistent cough, but this is the first day that I noticed it. She states she had a cough prior to surgery. No nausea or vomiting. She's had some increasing pain that has been difficult to control that has her little down today. No nausea or vomiting. Objective : Data - Labs CBC and BMP: 05/12/18 04:15 05/10/18 04:04 Objective : Exam - General General Appearance: No Acute Distress, Cooperative - Eye Eye Exam: No Scleral Icterus - ENT ENT Exam: Mucous Membranes Moist - Respiratory Respiratory Exam: Clear to Auscultation - Bilaterally, Breathing Non Labored - Cardiovascular Cardiovascular Exam: RRR, No Murmur, No Clicks, No Gallops, No Rubs, No JVD - GI/Abdominal GI/Abdominal Exam: Normal Bowel Sounds, Non Tender, Non Distended, Soft - Extremities Extremities Exam: No Clubbing Present, No Edema Present, No Cyanosis Present - Back Additional Back Exam Details: Incision is dressed. Dressing is clean, dry, intact. Drains removed. - Neurological Neurological Exam: Alert, Oriented x 3, No Facial Droop, Speech Intact / Clear, Moves All Extremities Equally Assessment and Plan - Patient Problems (1) Cough Current Visit: Yes Status: Acute Code(s): R05 - Cough (2) Anemia Current Visit: Yes Status: Acute Code(s): D64.9 - Anemia, unspecified Qualifiers: Anemia type: unspecified type Qualified Code(s): D64.9 - Anemia, unspecified (3) History of back surgery Current Visit: Yes Status: Acute Code(s): Z98.890 - Other specified postprocedural states (4) Depression Current Visit: Yes Status: Acute Code(s): F32.9 - Major depressive disorder , single episode, unspecified Qualifiers: Depression Type: unspecified Qualified Code(s): F32.9 - Major depressive disorder, single episode, unspecified (5) Chronic neck and back pain Current Visit: Yes Status: Chronic Code(s): M54.2 - Cervicalgia; M54.9 - Dorsalgia, unspecified; G89.29 - Other chronic pain - Assessment / Plan Additional Assessment/Plan Details: I really encouraged patient to do more mobilization and lots of walking. I think that would help her. Has more color to her face post transfusion and a little bit more energy. She seems a little more depressed or down today, but I think that is in relation to difficulty with pain control postoperatively. Again, I think this would all improve if she was walking and moving a little bit more. Outpatient colonoscopy in 8 weeks with iron deficiency anemia. Given the cough, melena check a chest x-ray make sure not missing a pneumonia. Discussed with patient and at bedside. They agree with the plan.
--- NOTE | 2018-05-12 11:15 | DI ---
Exam: FILM CXR 05/12/18 at 1039 hrs. Single frontal view chest INDICATION: Postoperative cough COMPARISON: None FINDINGS: No pneumothorax or effusion. The cardiomediastinal silhouette is within normal limits. No venous congestion. There is small focal opacity in the medial right lung base adjacent to the right cardiac margin suggestive of subsegmental atelectasis. Remaining lungs are clear. Posterior pedicle screw and yao fusion from T10 extending to at least the L2 level of lumbar spine partially imaged and likely extending more distally. There is also bilateral lateral screw and yao fixation hardware at L2 extending inferiorly. C7/T1 spinal interposition disc graft hardware is noted. No acute osseous abnormality. IMPRESSION: 1. Small focal opacity medial right lung base likely representing small region of subsegmental atelectasis. Lungs are otherwise clear. 2. No pneumothorax or effusion. No evidence for congestive heart failure. 3. Posterior pedicle screw and yao fusion from T10 extending inferiorly below lower edge of the film to at least L2 level. Interposition metallic disc graft at C7/T1. No acute osseous abnormality.
[2018-05-12] MEDS: NICOTINE 21 MG /DAY PATCH TRANSDERM SCH (15:38)
[2018-05-12] MEDS: Sertraline Tab 50 MG TAB PO SCH (20:20)
[2018-05-13] MEDS: oxyCODONE/APAP 10/325 Tab 1 EACH TAB PO PRN ×3 (00:27→08:22)
[2018-05-13] MEDS: CARISOPRODOL 350 MG TABLET PO PRN (00:32)
--- NOTE | 2018-05-13 05:54 | NEURO.PROG ---
Subjective Post Op Day: 4 Pain Management: PO Escalante Catheter: No Flatus: Yes Diet: Regular Ambulating: Yes Additional Details: Afebrile, VSS Noted reported cough and chest x-ray report per Dr Serna's note and appreciate his involvement. Nurses also report some irritability but pts refusal for IV pain med. I'm sure some of this stems from my conversation about Dr. Jones's preference for no IV pain medication requirement for a day prior to discharge as an indicator they will have adequate pain management after discharge. Up in room and ambulating with staff. No report of progress of milestones with physical therapy. Plan to continue as above and per hospitalist. Objective : Data - Labs CBC and BMP: 05/12/18 04:15 05/10/18 04:04 - Vital Signs Vital Signs and I&O: Vital Signs - Last Taken Temperature 98.4 F 05/13/18 05:00 Pulse Rate 94 05/13/18 05:00 Respiratory Rate 18 05/13/18 05:00 Blood Pressure 111/53 05/13/18 05:00 Pulse Ox 96 05/13/18 05:00 Intake and Output (24hr x 4 totals) 05/10/18 05/11/18 05/12/18 05/13/18 05:59 05:59 05:59 05:59 Intake Total 7075 / 7075 3182 / 3182 3334 / 3334 1400 / 1400 Output Total 4782 / 4782 1220 / 1220 1805 / 1805 1850 / 1850 Balance 2293 / 2293 1962 / 1962 1529 / 1529 -450 / -450
[2018-05-13] MEDS: PANTOPRAZOLE 40 MG TABLET PO SCH (07:26)
[2018-05-13] MEDS: CALCIUM CARBONATE 500 MG (TUMS) CHEWABLE TABLET PO SCH ×2 (08:23→20:31)
[2018-05-13] MEDS: ALPRAZolam Tab 1 MG TABLET PO SCH ×2 (08:23→20:31)
[2018-05-13] MEDS: CHOLECALCIFEROL 1000 IU TABLET PO SCH (08:23)
[2018-05-13] MEDS: CYANOCOBALAMIN (VITAMIN B-12) 1,000 MCG TABLET.ER PO SCH (08:24)
[2018-05-13] MEDS: ASCORBIC ACID Chewable 500 MG TABLET PO SCH (08:24)
[2018-05-13] MEDS ORDERED: CELECOXIB 200 MG CAPSULE PO ONE (09:38)
--- NOTE | 2018-05-13 09:44 | PDOC(PROG) ---
Date of Service: 05/13/18 Time of Service: 09:38 Interval History: Patient is very frustrated as she has had peaks and valleys of pain with no consistent pain control. She is not sleeping well at night because of the pain. She states it's different then what it was prior to surgery, but it just has not been controlled postoperatively very well. She is very nervous about going home on oxycodone IR with no other regimen as her acute pain has been quite uncontrollable. She thinks if it could reduce by 40% she would feel better. She denies any chest pain. She denies any nausea or vomiting. She is constipated and has not had a bowel movement. She states that twisting motions make her pain worse. She feels better when she is upright and walking and can stretch a little more. Objective : Data - Labs CBC and BMP: 05/12/18 04:15 05/10/18 04:04 Objective : Exam - General General Appearance: No Acute Distress, Cooperative Additional General Exam Details: Vital Signs - Last Taken Temperature 97.3 F 05/13/18 07:26 Pulse Rate 85 05/13/18 07:26 Respiratory Rate 16 05/13/18 07:26 Blood Pressure 89/66 05/13/18 07:26 Pulse Ox 91 05/13/18 07:26 Patient is tearful on examination. - Eye Eye Exam: No Scleral Icterus - ENT ENT Exam: Mucous Membranes Moist - Neck Neck Exam: JVP is not Raised - Respiratory Respiratory Exam: Clear to Auscultation - Bilaterally, Breathing Non Labored - Cardiovascular Cardiovascular Exam: RRR, No Murmur, No Clicks, No Gallops, No Rubs, No JVD - GI/Abdominal GI/Abdominal Exam: Normal Bowel Sounds, Non Tender, Non Distended, Soft - Extremities Extremities Exam: No Clubbing Present, No Edema Present, No Cyanosis Present - Neurological Neurological Exam: Alert, Oriented x 3, No Facial Droop, Speech Intact / Clear, Moves All Extremities Equally - Psychiatric Psychiatric Exam: Flat Affect Assessment and Plan - Patient Problems (1) Acute postoperative pain Current Visit: Yes Status: Acute Code(s): G89.18 - Other acute postprocedural pain (2) Cough Current Visit: Yes Status: Resolved Code(s): R05 - Cough (3) Anemia Current Visit: Yes Status: Acute Code(s): D64.9 - Anemia, unspecified Qualifiers: Anemia type: unspecified type Qualified Code(s): D64.9 - Anemia, unspecified (4) History of back surgery Current Visit: Yes Status: Acute Code(s): Z98.890 - Other specified postprocedural states (5) Depression Current Visit: Yes Status: Acute Code(s): F32.9 - Major depressive disorder , single episode, unspecified Qualifiers: Depression Type: unspecified Qualified Code(s): F32.9 - Major depressive disorder, single episode, unspecified (6) Chronic neck and back pain Current Visit: Yes Status: Chronic Code(s): M54.2 - Cervicalgia; M54.9 - Dorsalgia, unspecified; G89.29 - Other chronic pain - Assessment / Plan Additional Assessment/Plan Details: Given that the patient will be going to [place], [place], for the next month to 2 months, I think we should consider trying a long-acting oxycodone to see if we can even out the peaks and valleys of the patient's pain control. I will also add Celebrex to the patient's regimen to see if that helps. Continue with PT and OT. Stay here today until that pain is reduced a little bit more for the patient feel comfortable going home. Colonoscopy in a couple of months, and the patient states that she'll continue to follow-up with that plan. I will notify Jessica Goodman PA-C, so that she is aware that I think the best thing to do from the hospitalist side to keep the patient for improved pain control.
[2018-05-13] MEDS: MAGNESIUM 400 MG/5 ML - 30 ML (MILK OF MAGNESIA) PO SCH ×3 (11:14→20:30)
[2018-05-13] MEDS ORDERED: oxyCODONE ER 10 MG TAB PO ONE ×2 (11:15→21:00)
[2018-05-13] MEDS: NICOTINE 21 MG /DAY PATCH TRANSDERM SCH (15:14)
[2018-05-13] MEDS: oxyCODONE IR Tab 5 MG TAB PO PRN ×3 (15:17→22:53)
[2018-05-13] MEDS: DOCUSATE 100 MG CAPSULE PO PRN (20:30)
[2018-05-13] MEDS: oxyCODONE ER 10 MG TAB PO SCH (20:31)
[2018-05-13] MEDS: CELECOXIB 200 MG CAPSULE PO SCH (20:31)
[2018-05-13] MEDS: Sertraline Tab 50 MG TAB PO SCH (20:31)
[2018-05-14 04:35] VITALS: TEMP 98.3
[2018-05-14] MEDS: oxyCODONE IR Tab 5 MG TAB PO PRN ×3 (04:39→11:22)
[2018-05-14] MEDS: PANTOPRAZOLE 40 MG TABLET PO SCH (07:31)
[2018-05-14] MEDS: MAGNESIUM 400 MG/5 ML - 30 ML (MILK OF MAGNESIA) PO SCH (07:31)
[2018-05-14 07:54] VITALS: BP 107/63; RESP 17; O2SAT 93
--- NOTE | 2018-05-14 08:30 | NEURO.PROG ---
Subjective Post Op Day: 5 Pain Management: PO Escalante Catheter: Yes Diet: Regular Ambulating: Yes Additional Details: Ms Hernandez feels much better today with the changes in pain management. She is up in her room, making preparations for discharge. Strength is good bilaterally and she has no peripheral complaints. Pain is incisional. Vital signs are stable. Incision is dry and intact, without erythema She has not had a bowel movement even with the bowel protocol in place. She does have flatus. She is not uncomfortable and is aware of the problems with constipation that narcotics cause. She also plans to follow up with her primary care physician regarding a colonoscopy. She has been given wound care and activity instructions. Also a follow up appointment with Dr. Jones in [place]. Plan discharge to her brother's home in [place] per Dr. Serna today. Objective : Data - Labs CBC and BMP: 05/12/18 04:15 05/10/18 04:04 - Vital Signs Vital Signs and I&O: Vital Signs - Last Taken Temperature 98.3 F 05/14/18 07:53 Pulse Rate 83 05/14/18 07:53 Respiratory Rate 17 05/14/18 07:53 Blood Pressure 107/63 05/14/18 07:53 Pulse Ox 93 05/14/18 07:53 Intake and Output (24hr x 4 totals) 05/12/18 05/13/18 05/14/18 05/15/18 05:59 05:59 05:59 05:59 Intake Total 3334 / 3334 1400 / 1400 440 / 440 Output Total 1805 / 1805 1850 / 1850 Balance 1529 / 1529 -450 / -450 440 / 440
[2018-05-14] MEDS: ASCORBIC ACID Chewable 500 MG TABLET PO SCH (08:34)
[2018-05-14] MEDS: CALCIUM CARBONATE 500 MG (TUMS) CHEWABLE TABLET PO SCH (08:34)
[2018-05-14] MEDS: CYANOCOBALAMIN (VITAMIN B-12) 1,000 MCG TABLET.ER PO SCH (08:34)
[2018-05-14] MEDS: CELECOXIB 200 MG CAPSULE PO SCH (08:35)
[2018-05-14] MEDS: ALPRAZolam Tab 1 MG TABLET PO SCH (08:35)
[2018-05-14] MEDS: oxyCODONE ER 10 MG TAB PO SCH (08:37)
[2018-05-14] MEDS: CHOLECALCIFEROL 1000 IU TABLET PO SCH (08:44)
[2018-05-14] MEDS ORDERED: MAGNESIUM 400 MG/5 ML - 30 ML (MILK OF MAGNESIA) PO SCH (09:00)
--- NOTE | 2018-05-14 09:23 | DCSUMMARY ---
Hospitalization Summary Admit Date: 05/09/2018 Discharge Date: 05/14/18 Primary Diagnosis:: status post back surgery Hospital Course: Very pleasant 57-year-old female who suffers from chronic back pain. She had back surgery performed by Dr. Jones and was admitted on 05/09/2018. See his notes for further details of procedure and admission. Hospital service was consulted to address medical issues. In terms of recovery from back surgery, the patient's postoperative pain was quite severe and finally responded to longer acting oxycodone and Celebrex in addition to short acting oxycodone for pain. She did very well with physical therapy and met her goals with them. Her follow-up plan is to actually remain in [place], [place], with family, until she recovers before she goes back to [place] where she puts. In terms of medical issues, she did have iron deficiency anemia, she required 2 units of blood transfusion during the hospital stay, and I think that this iron deficiency anemia is chronic in nature with slight acute exacerbation postoperatively. She did very well with blood transfusion. I recommended that she have a colonoscopy done and spoke to her and her about this and they understood those recommendations well. We placed her on milk of magnesia the last 2 days in the hospital stay and prescribed Colace and MiraLAX leaving the hospital to try and prevent and/or improve constipation. We have her on a nicotine patch for smoking cessation. Today, no completes of chest pain, shortness breath, nausea or vomiting. Back pain is much better controlled and the patient would like to go home. Assessment and Plan: 1. As per discharge assessments noted 2. Disposition: Patient is discharged home. 3. Condition on discharge, stable and improved. 4. Diet: regular diet 5. Activities: As per Dr. Jones and physical therapy 6. Follow-Up: 1. Primary care physician upon return to [place] 2. Neurosurgery on 05/22/2018 7. Medications at the Time of Discharge: Home Medications 3 Medication Instructions Recorded Confirmed Type alprazolam 1 mg tablet 1 mg PO BID 03/20/18 05/09/18 History ascorbic acid (vitamin C) 500 mg 500 mg PO DAILY 03/20/18 05/09/18 History capsule calcium lactate 100 mg calcium 250 mg PO BID tab 03/20/18 05/09/18 History tablet carisoprodol 350 mg tablet 350 mg PO TID tab 03/20/18 05/09/18 History cholecalciferol (vitamin D3) 5,000 5,000 unit PO QDAY 03/20/18 05/09/18 History unit capsule diphenhydramine 25 1 tab PO QHS PRN 03/20/18 05/09/18 History mg-acetaminophen 500 mg tablet lactobacillus combination no.9 4 4,000 mmu cells PO QDAY 03/20/18 03/20/18 History billion cell capsule sertraline 50 mg tablet 50 mg PO QDAY 03/20/18 05/09/18 History Celecoxib [Celebrex] 200 mg PO BID #5 cap 05/14/18 Rx Cyanocobalamin (Vitamin B-12) 1,000 mcg PO DAILY #30 tablet.er 05/14/18 Rx [Vitamin B-12] Docusate Sodium [Colace] 100 mg PO BID PRN #60 cap 05/14/18 Rx Nicotine 21mg Patch [Nicoderm CQ 1 patch TRANSDERM DAILY@1400 #30 05/14/18 Rx 21mg Patch] patch Polyethylene Glycol 3350 [Miralax] 17 gm PO DAILY #30 powd.pack 05/14/18 Rx oxyCODONE ER Tab [OxyCONTIN Tab] 10 mg PO BID #40 tab 05/14/18 Rx oxyCODONE IR Tab [OxyIR Tab] 5 - 10 mg PO Q4H PRN #96 tab 05/14/18 Rx 8. Time, care, counseling and coordination of care for this discharge is greater than 30 minutes. Exam - Vitals Vital Signs: Vital Signs Temperature 98.3 F Temperature Source Oral Pulse Rate [Apical] 54 Pulse Rate [Pulse Oximeter] 83 Pulse Rate 83 Respiratory Rate 17 Blood Pressure [Right Arm] 107/63 Blood Pressure [Left Arm] 91/47 Blood Pressure 103/64 Pulse Ox 93 Oxygen Flow Rate 1 Oxygen Delivery Method Room Air Height 5 ft 5 in Weight 162 lb 12.8 oz - General General Appearance: No Acute Distress, Cooperative - Eye Eye Exam: POSITIVE: No Scleral Icterus - ENT ENT Exam: POSITIVE: Mucous Membranes Moist - Respiratory Respiratory Exam: POSITIVE: Clear to Auscultation - Bilaterally, Breathing Non Labored - Cardiovascular Cardiovascular Exam: POSITIVE: RRR, No Murmur, No Clicks, No Gallops, No Rubs, No JVD - GI/Abdominal GI/Abdominal Exam: POSITIVE: Normal Bowel Sounds, Non Tender, Non Distended, Soft - Extremities Extremities Exam: POSITIVE: No Clubbing Present, No Edema Present, No Cyanosis Present - Neurological Neurological Exam: POSITIVE: Alert, Oriented x 3, Normal Gait (Gait has significantly improved throughout the hospital stay with walker and with back brace in place.), No Facial Droop, Speech Intact / Clear, Moves All Extremities Equally Data Peritnent Studies: 05/10/18 05/11/18 05/11/18 04:04 04:44 05:00 WBC Hgb Hct Plt Count Sodium 141 Potassium 4.0 Chloride 111 Carbon Dioxide 28 Anion Gap 2 L BUN 9 Creatinine 0.5 Estimated GFR > 60 BUN/Creatinine Ratio 18.00 Glucose 111 H Calculated Osmolality 291.0 Calcium 7.7 L Iron 29 L TIBC 229 L % Saturation 0 L Vitamin B12 460 Serum Folate 20.0 05/12/18 04:15 WBC 7.48 Hgb 10.5 L Hct 32.1 L Plt Count 224 Sodium Potassium Chloride Carbon Dioxide Anion Gap BUN Creatinine Estimated GFR BUN/Creatinine Ratio Glucose Calculated Osmolality Calcium Iron TIBC % Saturation Vitamin B12 Serum Folate Patient Problems - Patient Problem List (1) History of back surgery Current Visit: Yes Status: Acute Code(s): Z98.890 - Other specified postprocedural states Category: Medical (2) Acute postoperative pain Current Visit: Yes Status: Acute Code(s): G89.18 - Other acute postprocedural pain Category: Medical (3) Cough Current Visit: Yes Status: Resolved Code(s): R05 - Cough Category: Medical (4) Anemia Current Visit: Yes Status: Acute Code(s): D64.9 - Anemia, unspecified Qualifiers: Anemia type: unspecified type Qualified Code(s): D64.9 - Anemia, unspecified Category: Medical (5) Depression Current Visit: Yes Status: Acute Code(s): F32.9 - Major depressive disorder , single episode, unspecified Qualifiers: Depression Type: unspecified Qualified Code(s): F32.9 - Major depressive disorder, single episode, unspecified Category: Medical (6) Chronic neck and back pain Current Visit: Yes Status: Chronic Code(s): M54.2 - Cervicalgia; M54.9 - Dorsalgia, unspecified; G89.29 - Other chronic pain Category: Medical
--- NOTE | 2018-05-14 10:03 | OT.PROG ---
Progress Note Progress Note: S: pt stated that she was ready to d/c to her in [facility] in [place] and would like to take a shower. O: tx consisted of ADL tasks of showering and donning UE and LE clothes. pt completed functional ambulation x 90' x2with walker and CGA for safety and then proceeded to complete showing tasks. pt completed hair washing, anterior body and posterior body washing independently with use of long handled sponge for reaching lower legs and back. pt was able to dry self independently and josé luis shoes for ambulation. pt completed donning on back brace with MIN A for education on donning brace and positioning. pt completed LE dressing with [place] of [employer] [place] and sock aide. pt completed donning of UE independently. A: pt is independent in all dressing tasks and only needed MIN VCs for use of AE. P: pt is d/c from skilled OT services due to reaching all OT goals
--- NOTE | 2018-05-14 10:06 | PT AM DAY ---
Diagnosis : Lumbar Fusion AM - Physical Therapy S: The patient states that she had her drains removed this morning and also did have a shower prior to therapy. She is fatigued and she stated it was pretty painful having her drains come out, but she is willing to participate with therapy. O: The patient was able to ambulate 100 feet with contact guard assist x1 for safety and use of standard walker. The patient was then instructed on how to ascend and descend 5 stairs with a standard walker and a railing on the right side. The patient was able to perform activity with minimal cueing needed for proper walker placement. Following that activity, the patient ambulated another 100 feet back to her room with contact guard assist x1 for safety. The patient stated that she needed to use the bathroom. She was brought into the bathroom and left with call light within reach. Nursing staff was notified that the patient was in the bathroom. A: The patient tolerated therapy much better this morning and was able to ambulate further than she has on the previous days. The therapist is concerned that the patient is still having difficulties putting her brace on. Mobility salazar, she did very well and was able to do the stairs with minimal cueing. P: Patient will be discharged to home tomorrow morning. We will review how to don and doff her brace and any other concerns the patient may have. Otherwise, the patient has met all mobility goals. DANIS
--- NOTE | 2018-05-14 10:39 | PT AM DAY ---
Diagnosis : Lumbar Fusion AM - Physical Therapy S: The patient states she is doing a little better today, but they have been having difficulty keeping her pain under control, so she is planning on staying one more day for pain management. The patient is willing to participate with therapy and would like to review the stairs just to make sure that she is able to do them without any assistance. O: Treatment today consisted of ambulating x200 feet with stand by assist x1 for safety and use of standard walker. The patient also performed three stairs, requiring two verbal cues for correct placement of her walker on the way up the stairs and for hand placement on the way down. The patient was able to perform stairs with stand by assist x1 for safety. We returned back to the room and the patient transferred to the bed with her call light within reach. The therapist did notify nursing staff that the patient did not want the bed alarm set. She said that she would call for assistance as needed. She states that it keeps going off every time she moves. When the therapist did get to the room, she was up and moving around without anybody in the room and did not have any alarms set at that time either. A: The patient is doing well. She was able to ambulate further distances without a rest break and perform stairs with only very minimal cueing needed today. We did discuss PT tomorrow morning for helping with the car transfer so that the patient will be able to do that independently. P: Continue seeing patient BID during the week and one time per day over the weekend until discharge. DANIS
[2018-05-14] MEDS: NICOTINE 21 MG /DAY PATCH TRANSDERM SCH (10:42)
[2018-05-14] MEDS: CARISOPRODOL 350 MG TABLET PO PRN (10:42)
--- NOTE | 2018-05-14 12:01 | PT.PROG ---
Progress Note Progress Note: S: Patient stated that she is feeling good and ready to go home. She reports she is nervous about getting into her truck. O: Patient transferred from her wheelchair to her truck with MIAx1. She used a walker to walk to the door of her truck, and then sat in the seat backwards using her legs to push her up and in. A: Patient tolerated transfer well, but should continue transferring into the truck with supervision and assistance until she is stronger. P: Patient will be seen by outpatient physical therapy.
--- NOTE | 2018-05-14 16:44 | OTI REPORT ---
Thank you for the referral of Terese Hernandez. She was seen on 05/11/18 for an occupational therapy inpatient evaluation status post lumbar fusion. SUBJECTIVE: The patient is a 57-year-old female. The patient initially reported a pain level of 10/10 on the verbal analog scale (0=no pain, 10=worst pain); however, the nurse gave her a dose of Dilaudid and the patient reported a pain level of 6 /10 and she was willing to participate in occupational therapy evaluation. PAST MEDICAL HISTORY: Past medical history can be found in the patient's medical record. OBJECTIVE FINDINGS: Activities of daily living: The patient was instructed in the use of adaptive equipment including a long handled bath sponge, picking tech, sock aide, and a long handled shoe horn. The patient demonstrated the ability to complete donning of socks with picking tech with moderate assistance. The patient was unwilling to perform lower extremity dressing tasks today due to increases in pain. Bed mobility: The patient was instructed in log rolling technique as well as the precautions of no bending/lifting/twisting as well as donning and doffing her back brace. Transfers: The patient demonstrated the ability to complete sit to stand transfers with contact guard assist. Ambulation: The patient completed functional ambulation tasks while the patient did continue to require assistance for functional ADL tasks with use of adaptive equipment. ASSESSMENT: The patient's rehab potential is fair. She will benefit from continued occupational therapy services in order to improve her lower extremity dressing while following surgical precautions with adaptive equipment. The patient was issued a long handled bath sponge, shoe horn, picking tech, and sock aide today. Occupational Therapy Goals: To be met by discharge from inpatient: Patient will demonstrate an understanding of back precautions. Patient will complete lower extremity dressing to include donning and doffing of pants and socks with adaptive equipment as needed. Patient will demonstrate the ability to complete appropriate log rolling techniques. TREATMENT PLAN: Patient will be seen B.I.D during the week and one time per day over the weekend as an inpatient to address the above goals and objectives. INITIAL TREATMENT: Treatment today consisted of the initial evaluation followed by instruction in ADL performance with use of adaptive equipment. DANIS
== END 2018-05-14 11:30 | disposition home or self-care (01) | DRG 455 ==
LOC: OPS 05:25 → MED/SURG 20:50
PROVIDERS: ADMIT Neurological Surgery; ATTEND Neurological Surgery